=== PATIENT | male | born 1950 | race Caucasian/White ===

== ENCOUNTER 2016-04-28 07:06 | Emergency (ER) | payer MEDICARE, BC ==
[2016-04-28] MEDS ORDERED: Benzonatate 100 MG CAP ONE (07:40)
== END 2016-04-28 07:59 | disposition home or self-care (01) ==
LOC: BURERS 07:06
DX: J20.9 Acute bronchitis, unspecified (principal); I25.2 Old myocardial infarction; I25.10 Atherosclerotic heart disease of native coronary artery without angina pectoris; I10 Essential (primary) hypertension; Z79.82 Long term (current) use of aspirin; Z79.899 Other long term (current) drug therapy
CPT/HCPCS: 99283

== ENCOUNTER 2016-10-14 10:10 | Outpatient (CLI) | payer MEDICARE, BC ==
[2016-10-14 11:18] LABS: ALT (SGPT) 30 U/L (8-55); AST (SGOT) 33 U/L (5-34); Albumin 4.3 g/dL (3.4-4.8); Alkaline Phosphatase 71 U/L (40-150); Anion Gap 15 mmol/L (10-20); BUN (Urea Nitrogen) 17 mg/dL (8.4-25.7); Bilirubin, Total 0.6 mg/dL (0.2-1.2); Calc. Creatinine Clearance 0 mL/min (70-130); Calcium 9.8 mg/dL (7.8-10.44); Carbon Dioxide 26 mmol/L (23-31); Cardiac Risk 3.6 (Less than 4.5); Chloride 105 mmol/L (98-107); Cholesterol 128 mg/dl (< 200 Desired); Estimated GFR-MDRD 77; Glucose 92 mg/dL (80-115); HDL Cholesterol 36 mg/dL (>60 Neg Risk); LDL Cholesterol, Calculated 81 mg/dL; Potassium 5.2 mmol/L (3.5-5.1); Protein, Total 7.3 g/dL (5.8-8.1); Sodium 141 mmol/L (136-145); Triglycerides 54 mg/dL (Less than 150)
[2016-10-14 11:56] LABS: Free T4 (Free Thyroxine) 0.99 ng/dL (0.70-1.48); PSA-Asymptomatic (SCREENING) 0.03 ng/mL (0-4.0)
[2016-10-14 12:03] LABS: #Eosinphils 0.3 thou/uL (0.0-0.7); #Lymphocytes 2.8 thou/uL (1.20-3.40); #Monocytes 0.5 thou/uL (0.11-0.59); %Basophils 0.6 % (0.0-1.0); %Eosinophils 4.9 % (0.0-10.0); %Monocytes 7.6 % (0.0-10.0); %Neutrophils 44.8 % (42.0-75.0); Hemoglobin 15.3 g/dL (14.0-18.0); Mean Corpuscular HGB CONC 37.9 g/dL (32.0-36.0); Mean Corpuscular Hemoglobin 36.7 pg (27.0-31.0); Mean Corpuscular Volume 96.8 fl (80.0-94.0); Platelet Count 214 thou/uL (130-400); RBC Distribution Width 10.5 % (11.5-14.5); Red Blood Cell (RBC) Count 4.17 mill/uL (4.70-6.10); White Blood Cell (WBC) Count 6.7 thou/uL (4.8-10.8)
== END 2016-10-14 10:11 | disposition home or self-care (01) ==
LOC: HPCALD 10:10
PROVIDERS: ATTEND Family Medicine
DX: Z12.5 Encounter for screening for malignant neoplasm of prostate (principal); E78.2 Mixed hyperlipidemia; R53.83 Other fatigue
CPT/HCPCS: 36415; 80053; 80061; 84403; 84439; 84443; 85025; G0103

== ENCOUNTER 2017-06-13 00:19 | Emergency (ER) | payer BC, MEDICARE ==
[2017-06-13 00:49] LABS: Bilirubin Negative (Negative); Blood, Urine Large (Negative); Clarity Clear (Clear); Glucose, Urine (Dipstick) Negative (Negative); Leukocyte Negative (Negative); Nitrite Negative (Negative); Protein, Urine (Dipstick) Negative (Neg-Trace); Urobilinogen 0.2 mg/dL (0.2-1.0); pH, Urine 5.5 (5.0-9.0)
[2017-06-13] MEDS ORDERED: HYDROcodone/Acetaminophen 10/325 mg Tablet ONE (00:57)
[2017-06-13 01:02] LABS: RBC/HPF 21-50 HPF (0-3); Squamous Epithelial 0-3 HPF (0-3); WBC/HPF 0-3 HPF (0-3)
[2017-06-13] MEDS ORDERED: Tamsulosin HCl 0.4 MG CAP PO SCH (02:30)
[2017-06-13 02:39] LABS: Anion Gap 15 mmol/L (10-20); BUN (Urea Nitrogen) 21 mg/dL (8.4-25.7); Calc. Creatinine Clearance 0 mL/min (70-130); Calcium 9.4 mg/dL (7.8-10.44); Carbon Dioxide 24 mmol/L (23-31); Chloride 104 mmol/L (98-107); Estimated GFR-MDRD 44; Glucose 142 mg/dL (80-115); Potassium 3.9 mmol/L (3.5-5.1); Sodium 139 mmol/L (136-145)
[2017-06-13 02:41] LABS: Hemoglobin 13.5 g/dL (14.0-18.0); Mean Corpuscular HGB CONC 36.2 g/dL (32.0-36.0); Mean Corpuscular Hemoglobin 35.1 pg (27.0-31.0); Mean Corpuscular Volume 96.8 fl (80.0-94.0); Mean Platelet Volume 7.8 fL (7.4-10.4); Platelet Count 185 thou/uL (130-400); RBC Distribution Width 10.7 % (11.5-14.5); Red Blood Cell (RBC) Count 3.86 mill/uL (4.70-6.10); White Blood Cell (WBC) Count 11.4 thou/uL (4.8-10.8)
[2017-06-13 02:46] LABS: #Basophils 0.1 thou/uL (0.0-0.2); #Eosinphils 0.4 thou/uL (0.0-0.7); #Lymphocytes 2.4 thou/uL (1.20-3.40); #Neutrophils 7.6 thou/uL (1.40-6.50); %Basophils 0.5 % (0.0-1.0); %Eosinophils 3.2 % (0.0-10.0); %Lymphocytes 21.3 % (21.0-51.0); %Monocytes 8.8 % (0.0-10.0); %Neutrophils 66.2 % (42.0-75.0); PLT Morphology Comment Appears Adequate; RBC Morphology Normal
[2017-06-13 02:47] LABS: Manual Diff?? NO
[2017-06-13 02:48] LABS: MDiff Complete? YES
[2017-06-13] MEDS ORDERED: Ketorolac Tromethamine 30 MG/ML VIAL ONE (03:14)
--- NOTE | 2017-06-13 07:58 | CT ---
PRELIMINARY REPORT/[facility]/EMERGENTY AFTER-HOURS PROCEDURE CT Abdomen and Pelvis Without Intravenous Contrast CLINICAL HISTORY: 67 years old, male; Pain; Abdominal pain; Flank; Right TECHNIQUE: Axial computed tomography images of the abdomen and pelvis without intravenous contrast. All CT scans at this facility use one or more dose reduction techniques, viz.: automated exposure control; ma/kV adjustment per patient size (including targeted exams where dose is matched to indication; i.e. head) ; or iterative reconstruction technique. Coronal reformatted images were created and reviewed. COMPARISON: No relevant prior studies available. FINDINGS: Lung bases: Significant elevation of the LEFT hemidiaphragm LEFT basilar subsegmental atelectasis. ABDOMEN: Liver: Unremarkable. Gallbladder and bile ducts: Unremarkable. No calcified stones. No ductal dilation. Pancreas: Unremarkable. No ductal dilation. Spleen: Unremarkable. No splenomegaly. Adrenals: Unremarkable. No mass. Kidneys and ureters: Mild RIGHT hydronephrosis. 4.1 mm proximal RIGHT ureteral stone. Stomach and bowel: Unremarkable. No obstruction. No mucosal thickening. Appendix: No findings to suggest acute appendicitis. PELVIS: Bladder: Unremarkable. No stones. Reproductive: Unremarkable as visualized. ABDOMEN and PELVIS: Intraperitoneal space: Unremarkable. No free air. No significant fluid collection. Bones/joints: No acute fracture. No dislocation. Soft tissues: Small fat-containing inguinal hernias. Vasculature: Unremarkable. No abdominal aortic aneurysm. Lymph nodes: Unremarkable. No enlarged lymph nodes. IMPRESSION: 4.1 mm proximal RIGHT ureteral stone with mild RIGHT hydronephrosis. Thank you for allowing us to participate in the care of your patient. Dictated and Authenticated by: Rikki Del Valle MD 06/13/2017 2:24 AM Central Time ([place] & [place]) FINAL REPORT CT ABDOMEN AND PELVIS WITHOUT CONTRAST: Date: 06/13/[address] of the abdomen and pelvis was done for evaluation of right flank pain. Axial slices were ac quired, and coronal reconstructions were obtained. FINDINGS: There is a 6-7 mm proximal right ureteral calculus that is causing moderate right hydronephrosis. No other renal calculi seen. Perinephric stranding is seen around the right kidney. No renal masses dete cted within the limitations of a noncontrast study. There is mild elevation of left hemidiaphragm that is probably chronic. There is some basilar atelect asis here as well. The liver, spleen, pancreas, gallbladder, adrenal glands, and abdominal aorta show ed no acute changes. The bowel as nondistended with no sign of obstruction or inflammatory change tony und it. No free air or free fluid seen. CT of the pelvis shows no pelvic masses, inflammatory changes, or free fluid. Small, fat-filled ingui nal hernias are present, which are not significant in size. IMPRESSION: 7.0 mm proximal right ureteral calculus causing moderate right hydronephrosis. Report in agreement with preliminary reading by Isadora. POS: HOME
== END 2017-06-13 03:42 | disposition home or self-care (01) ==
LOC: BURERS 00:19
DX: N13.2 Hydronephrosis with renal and ureteral calculous obstruction (principal); I25.10 Atherosclerotic heart disease of native coronary artery without angina pectoris; I25.2 Old myocardial infarction; I10 Essential (primary) hypertension; Z85.46 Personal history of malignant neoplasm of prostate; Z87.891 Personal history of nicotine dependence; Z79.899 Other long term (current) drug therapy
CPT/HCPCS: 36415; 74176; 80048; 81003; 81015; 85025; 96372; J1885

== ENCOUNTER 2018-04-23 13:21 | Outpatient (CLI) | payer BC ==
--- NOTE | 2018-04-24 07:36 | RAD ---
CHEST TWO VIEWS: 04/23/18 Comparison is made with a 02/28/15 study. The left hemidiaphragm is chronically elevated. There is some linear streaking over it that could be atelectasis. On the lateral view, there seems to be an increase in density behind the heart. Cannot r ule out a retrocardiac infiltrate here. The upper lobes are clear. The cardiac size is normal. There is no vascular congestion or edema. IMPRESSION: Increased density behind the heart. The possibility of an infiltrate here is not excluded as of yet. POS: HOME
== END 2018-04-23 13:22 | disposition home or self-care (01) ==
LOC: BURRAD 13:21
PROVIDERS: ATTEND Internal Medicine Gastroenterology
DX: J18.1 Lobar pneumonia, unspecified organism (principal); J98.4 Other disorders of lung
CPT/HCPCS: 71046

== ENCOUNTER 2019-02-28 08:56 | Emergency (ER) | payer MEDICARE, OTHER ==
[2019-02-28] MEDS ORDERED: Ondansetron ODT 4 MG TAB ONE (09:29)
[2019-02-28 09:34] LABS: #Basophils 0.1 thou/uL (0.0-0.2); #Eosinphils 0.3 thou/uL (0.0-0.7); #Monocytes 0.6 thou/uL (0.11-0.59); #Neutrophils 4.3 thou/uL (1.40-6.50); %Eosinophils 4.1 % (0.0-10.0); %Lymphocytes 36.6 % (21.0-51.0); %Monocytes 6.8 % (0.0-10.0); %Neutrophils 51.6 % (42.0-75.0); Hemoglobin 14.3 g/dL (14.0-18.0); MDiff Complete? YES; Macrocytosis SLIGHT = 6-15 cells (100X) (0-5/hpf); Mean Corpuscular HGB CONC 33.6 g/dL (32.0-36.0); Mean Corpuscular Hemoglobin 34.1 pg (27.0-31.0); Mean Platelet Volume 8.5 fL (7.4-10.4); Platelet Count 207 thou/uL (130-400); RBC Distribution Width 11.5 % (11.5-14.5); Red Blood Cell (RBC) Count 4.19 mill/uL (4.70-6.10); White Blood Cell (WBC) Count 8.3 thou/uL (4.8-10.8)
--- NOTE | 2019-02-28 09:40 | RAD ---
EXAM: Single view of the chest HISTORY: Cough COMPARISON: 02/28/2015 FINDINGS: Single view of the chest shows a normal sized cardiomediastinal silhouette. The patient is status post sternotomy. There is stable elevation the left hemidiaphragm. Atelectasis is seen in the left lung base. There is no evidence of consolidation, mass, or pleural effusion. The bones are unremarkable. IMPRESSION: Stable exam
[2019-02-28 09:48] LABS: ALT (SGPT) 25 U/L (8-55); AST (SGOT) 29 U/L (5-34); Albumin 4.5 g/dL (3.4-4.8); Alkaline Phosphatase 79 U/L (40-110); Anion Gap 19 mmol/L (10-20); BUN (Urea Nitrogen) 20 mg/dL (8.4-25.7); Bilirubin, Total 0.8 mg/dL (0.2-1.2); Calc. Creatinine Clearance 0 mL/min (70-130); Calcium 10.1 mg/dL (7.8-10.44); Carbon Dioxide 24 mmol/L (23-31); Chloride 102 mmol/L (98-107); Estimated GFR-MDRD 42; Globulin 3.4 g/dL (2.4-3.5); Glucose 112 mg/dL (80-115); Potassium 5.1 mmol/L (3.5-5.1); Protein, Total 7.9 g/dL (5.8-8.1); Sodium 140 mmol/L (136-145)
== END 2019-02-28 11:10 | disposition home or self-care (01) ==
LOC: BURERS 08:56
DX: E86.0 Dehydration (principal); I25.10 Atherosclerotic heart disease of native coronary artery without angina pectoris; I10 Essential (primary) hypertension; Z87.891 Personal history of nicotine dependence
CPT/HCPCS: 36415; 71045; 80053; 84484; 85025; 93005; Q0162